=== PATIENT | male | born 1940 | race Caucasian/White ===

== ENCOUNTER 2016-06-04 23:46 | Emergency (ER) | payer MEDICARE ==
[2016-06-04] MEDS ORDERED: FEVERALL 650 MG ONE (23:55)
[2016-06-04] MEDS ORDERED: FEVERALL 325 MG ONE (23:56)
[2016-06-04] MEDS ORDERED: Sodium Chloride 0.9% 1000 ML 1,000 ML IV STA (23:59)
[2016-06-04] MEDS ORDERED: TYLENOL 325 MG PO STA (23:59)
[2016-06-05] MEDS ORDERED: Zosyn 3.375GM/100 Ml D5W 100 ML IV ONE ×2 (00:01→00:33)
--- NOTE | 2016-06-05 00:09 | ERPHSYRPT ---
- History of Present Illness Time Seen by Provider: 06/04/16 23:49 Source: EMS, other (ER NURSE) Exam Limitations: clinical condition (UNRESPONSIVE) Physician History: REPORTEDLY PT WAS FOUND UNRESPONSIVE TONIGHT AND BROUGHT TO [facility] ER FOR EVALUATION. PT IS CURRENTLY NON-VERBAL. Allergies/Adverse Reactions: aspirin Allergy (Verified 02/02/16 11:38) Home Medications: Bumetanide [Bumex] 2 mg PO BID 12/16/15 [History] Carvedilol 6.25 mg [Coreg 6.25 MG] 6.25 mg PO BID 12/16/15 [History] Fluticasone/Vilanterol [Breo Ellipta 100-25 Mcg INH] 1 ampul IH DAILY 12/16/15 [ History] Gabapentin 300 mg PO TID 12/16/15 [History] Ipratropium/Albuterol Sulfate [Iprat-Albut 0.5-3(2.5) mg/3 ml] 1 ampul IH Q6H PRN PRN 12/16/15 [History] Morphine Sulfate [Morphine Sulfate ER] 30 mg PO BID 12/16/15 [History] Omeprazole 20 MG [Prilosec 20 mg] 20 mg PO DAILY 12/16/15 [History] Oxycodone HCl 10 mg PO Q4H PRN PRN 12/16/15 [History] Potassium Chloride 20 Meq [Klor-Con 20 MEQ] 40 meq PO BID 12/16/15 [History] Pravastatin Sodium 40 mg PO DAILY 12/16/15 [History] Prazosin HCl 3 mg PO DAILY 12/16/15 [History] Sertraline HCl 50 mg [Zoloft 50 mg Tablet] 50 mg PO DAILY 12/16/15 [History] Hx Tetanus, Diphtheria Vaccination/Date Given: No Hx Influenza Vaccination/Date Given: Yes Hx Pneumococcal Vaccination/Date Given: Yes - Review of Systems All Other Systems: Unable due to condition (PT IS UNRESPONSIVE) - Past Medical History Pertinent Past Medical History: Yes Neurological History: No Pertinent History ENT History: No Pertinent History Cardiac History: Congestive Heart Failure, Hypertension, Peripheral Vascular Disease Respiratory History: No Pertinent History, COPD Endocrine Medical History: No Pertinent History Musculoskeletal History: Arthritis GI Medical History: GERD, Other History: No Pertinent History Psycho-Social History: Anxiety Male Reproductive Disorders: No Pertinent History Other Medical History: hyperlipidemia,polyneuropathy,unspecified,benign prostatic hyperplasia without lower urinary tract - Past Surgical History Past Surgical History: Yes Gastrointestinal: Other Other Surgical History: gastric bypass, 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,HEMODYLASIS PERMACATH - Social History Smoking Status: Former smoker Exposure to second hand smoke: No Drug Use: none Patient Lives Alone: No - Nursing Vital Signs Nursing Vital Signs: Initial Vital Signs Temperature 104.0 F Temperature Source Rectal Pulse Rate 108 Respiratory Rate 10 Blood Pressure [] 64/40 Pain Intensity 0 - Physical Exam General Appearance: other (UNRESPONSIVE) Eye Exam: other (PUPILS 3MM DIAMETER AND REACTIVE TO LIGHT) Ears, Nose, Throat Exam: dry mucous membranes Neck Exam: normal inspection Respiratory Exam: rhonchi Cardiovascular Exam: tachycardia Gastrointestinal/Abdomen Exam: normal bowel sounds, other (VENTRAL HERNIA) Back Exam: other (DECUBITUS ULCER ON RIGHT MID BACK, LOWER BACK AND PERIANAL AREA.) Extremity Exam: other (RIGHT AKA; LEFT 2ND TOE AMPUTEE.) Neurologic Exam: other (UNRESPONSIVE) Skin Exam: decubitus - Course Nursing assessment & vital signs reviewed: Yes EKG Interpreted by Me: RATE ([id number]), NORMAL AXIS, Non-specific ST Changes, Other ( PACEMAKER RHYTHM) - Radiology Exams Chest X-ray Interpretation: Interpreted by me (CM) Ordered Tests: Active Orders 24 hr Category Date Time Status Catheter-[place] STAT Care 06/04/16 23:59 Active EKG-ER Only STAT Care 06/05/16 00:02 Active IV Insertion STAT Care 06/04/16 23:59 Active Oxygen-ED Only NON-REBREATHER 100% Care 06/05/16 00:17 Active Oxygen-ED Only VENTI-MASK 50% Care 06/05/16 00:46 Active Pulse Oximetry (ED) STAT Care 06/04/16 23:59 Active Re-Check Vital Signs STAT Care 06/04/16 23:59 Completed CHEST 1 VIEW (PORTABLE) Stat Exams 06/05/16 00:00 Taken AMYLASE Stat Lab 06/05/16 00:00 Completed BLOOD CULTURE Stat Lab 06/04/16 23:59 Received CBC W DIFF Stat Lab 06/04/16 23:59 Results CMP Stat Lab 06/04/16 23:59 Completed CULTURE, THROAT Stat Lab 06/05/16 00:20 Received CULTURE,URINE Stat Lab 06/04/16 23:59 Received Erythrocyte Sedimentation Rate Stat Lab 06/05/16 00:00 Completed LIPASE Stat Lab 06/05/16 00:00 Completed Lactic Acid Urgent Lab 06/04/16 23:59 Completed Manual Differential NC Stat Lab 06/05/16 00:00 Results [place] Screen Stat Lab 06/04/16 23:59 Completed Pathologist Review Stat Lab 06/05/16 00:00 Results STREP SCREEN-BETA A Stat Lab 06/04/16 23:59 Completed TROPONIN Stat Lab 06/05/16 00:00 Completed UA W/ MICROSCOPIC Stat Lab 06/05/16 01:00 Completed VENOUS BLOOD GAS Stat Lab 06/05/16 00:30 Completed Medication Summary Generic Name Dose Route Start Last Admin Trade Name Freq PRN Reason Stop Dose Admin Sodium Chloride 1,000 mls @ 999 mls/hr 06/05/16 00:34 06/05/16 00:39 Sodium Chloride 0.9% 1000 Ml IV 06/05/16 01:34 999 mls/hr .Q1H1M STA Administration Discontinued Medications Generic Name Dose Route Start Last Admin Trade Name Freq PRN Reason Stop Dose Admin Acetaminophen Confirm 06/04/16 23:55 [place] 650 Mg Administered 06/04/16 23:56 Dose 650 mg .ROUTE .STK-MED ONE Acetaminophen Confirm 06/04/16 23:56 [place] 325 Mg Administered 06/04/16 23:57 Dose 325 mg .ROUTE .STK-MED ONE Acetaminophen 975 mg 06/04/16 23:59 06/05/16 00:20 Tylenol 325 Mg PO 06/05/16 00:00 975 mg STAT STA Administration Dextrose 50 ml 06/05/16 00:47 D50w 50 Ml Abboject IV 06/05/16 00:48 STAT ONE Dextrose Confirm 06/05/16 01:02 D50w 50 Ml Abboject Administered 06/05/16 01:03 Dose 50 ml IV .STK-MED ONE Sodium Chloride Confirm 06/05/16 00:00 Sodium Chloride 0.9% 1000 Ml Administered 06/05/16 00:01 Dose 1,000 mls @ ud .ROUTE .STK-MED ONE Piperacillin Sod/Tazobactam Sod 100 mls @ 100 mls/hr 06/05/16 00:01 06/05/16 00:56 Zosyn 3.375gm/100 Ml D5w IV 06/05/16 01:00 100 mls/hr STAT ONE Administration Sodium Chloride 1,000 mls @ 999 mls/hr 06/04/16 23:59 06/05/16 00:00 Sodium Chloride 0.9% 1000 Ml IV 06/05/16 00:59 999 mls/hr .Q1H1M STA Administration Sodium Chloride Confirm 06/05/16 00:33 Sodium Chloride 0.9% 1000 Ml Administered 06/05/16 00:34 Dose 1,000 mls @ ud .ROUTE .STK-MED ONE Piperacillin Sod/Tazobactam Sod Confirm 06/05/16 00:33 Zosyn 3.375gm/100 Ml D5w Administered 06/05/16 00:34 Dose 100 mls @ ud IV .STK-MED ONE Insulin Human Regular 10 unit 06/05/16 00:47 Novolin R IV 06/05/16 00:48 STAT ONE Insulin Human Regular Confirm 06/05/16 01:02 Novolin R Administered 06/05/16 01:03 Dose 10 unit .ROUTE .STK-MED ONE Lidocaine HCl 200 mg 06/05/16 00:17 06/05/16 00:39 Xylocaine 2% Uro-Jet TOP 06/05/16 00:18 200 mg STAT ONE Administration Lidocaine HCl Confirm 06/05/16 00:18 Xylocaine 2% Uro-Jet Administered 06/05/16 00:19 Dose 200 mg .ROUTE .STK-MED ONE Lab/Rad Data: Laboratory Result Diagrams 06/05/16 00:00 06/05/16 00:00 Laboratory Results 06/05/16 06/05/16 06/05/16 Range/Units 01:00 00:30 00:20 WBC (4.0-10.5) K/mm3 RBC (4.1-5.6) M/mm3 Hgb (12.5-18.0) gm/dl Hct (42-50) % MCV (78-100) fl MCH (26-32) pg MCHC (32-36) g/dl RDW (11.5-14.0) % Plt Count (150-450) K/mm3 MPV (6-9.5) fl Smear Path Review ESR (0-15) mm/hr VBG pH 7.25 L (7.32-7.42) VBG pCO2 at Pat Temp 71 H* (42-55) mm/Hg VBG pO2 at Pat Temp 65 H (25-40) mm/Hg VBG HCO3 31.1 H* (22-28) meq/L VBG O2 Sat (Chloe) 94.9 L (95-100) VBG Base Excess 2.1 H (-2.0-2.0) VBG Hemoglobin 12.3 VBG Carboxyhemoglobin 3.0 (0.0-6.9) % T HGB POC Potassium 5.5 H (3.5-5.1) Sodium (136-145) mEq/L Potassium (3.5-5.1) mEq/L Chloride (98-107) mEq/L Carbon Dioxide (21-32) mEq/L Anion Gap (5-15) MEQ/L BUN (9-20) mg/dL Creatinine (0.55-1.30) mg/dl Estimated GFR ML/MIN Glucose (70-110) MG/DL Lactic Acid (0.4-2.0) Calcium (8.5-10.1) mg/dL Total Bilirubin (0.2-1.0) mg/dL AST (15-37) U/L ALT (12-78) U/L Alkaline Phosphatase (46-116) U/L Troponin I (0.000-0.056) ng/ml Serum Total Protein (6.4-8.2) gm/dL Albumin (3.4-5.0) g/dL Amylase (25-115) U/L Lipase (73-393) U/L Ur Collection Type CATH Urine Color BROWN (YELLOW) Urine Appearance CLOUDY (CLEAR) Urine pH 8.5 (5-6) Ur Specific Victor 1.015 (1.005-1.025) Urine Protein >=300 (Negative) Urine Glucose (UA) 100 (NEGATIVE) mg/dL Urine Ketones SMALL-15 (NEGATIVE) Urine Nitrite POSITIVE (NEGATIVE) Urine Bilirubin LARGE (NEGATIVE) Urine Urobilinogen 4 (0-1) mg/dL Urine WBC (Auto) LARGE (NEGATIVE) Urine RBC (Auto) LARGE (0-5) Crow/ul Urine Microscopic RBC >100 (0-2) /HPF Urine Microscopic WBC 50-100 (0-5) /HPF Ur Epithelial Cells FEW (FEW) /HPF Amorphous Crystals MODERATE (NEGATIVE) /HPF Urine Bacteria PACKED (NEGATIVE) /HPF Urine Mucus MODERATE (NEGATIVE) /HPF Urine Yeast FEW (NEGATIVE) /HPF Monoscreen (Negative) Streptococcus Screen NEGATIVE (Negative) Specimen Received 06/05/16:0100 06/05/16 06/05/16 06/05/16 Range/Units 00:00 00:00 00:00 WBC (4.0-10.5) K/mm3 RBC (4.1-5.6) M/mm3 Hgb (12.5-18.0) gm/dl Hct (42-50) % MCV (78-100) fl MCH (26-32) pg MCHC (32-36) g/dl RDW (11.5-14.0) % Plt Count (150-450) K/mm3 MPV (6-9.5) fl Smear Path Review ESR 1 (0-15) mm/hr VBG pH (7.32-7.42) VBG pCO2 at Pat Temp (42-55) mm/Hg VBG pO2 at Pat Temp (25-40) mm/Hg VBG HCO3 (22-28) meq/L VBG O2 Sat (Chloe) (95-100) VBG Base Excess (-2.0-2.0) VBG Hemoglobin VBG Carboxyhemoglobin (0.0-6.9) % T HGB POC Potassium (3.5-5.1) Sodium (136-145) mEq/L Potassium (3.5-5.1) mEq/L Chloride (98-107) mEq/L Carbon Dioxide (21-32) mEq/L Anion Gap (5-15) MEQ/L BUN (9-20) mg/dL Creatinine (0.55-1.30) mg/dl Estimated GFR ML/MIN Glucose (70-110) MG/DL Lactic Acid (0.4-2.0) Calcium (8.5-10.1) mg/dL Total Bilirubin (0.2-1.0) mg/dL AST (15-37) U/L ALT (12-78) U/L Alkaline Phosphatase (46-116) U/L Troponin I 0.018 (0.000-0.056) ng/ml Serum Total Protein (6.4-8.2) gm/dL Albumin (3.4-5.0) g/dL Amylase 24 L (25-115) U/L Lipase 34 L (73-393) U/L Ur Collection Type Urine Color (YELLOW) Urine Appearance (CLEAR) Urine pH (5-6) Ur Specific Victor (1.005-1.025) Urine Protein (Negative) Urine Glucose (UA) (NEGATIVE) mg/dL Urine Ketones (NEGATIVE) Urine Nitrite (NEGATIVE) Urine Bilirubin (NEGATIVE) Urine Urobilinogen (0-1) mg/dL Urine WBC (Auto) (NEGATIVE) Urine RBC (Auto) (0-5) Crow/ul Urine Microscopic RBC (0-2) /HPF Urine Microscopic WBC (0-5) /HPF Ur Epithelial Cells (FEW) /HPF Amorphous Crystals (NEGATIVE) /HPF Urine Bacteria (NEGATIVE) /HPF Urine Mucus (NEGATIVE) /HPF Urine Yeast (NEGATIVE) /HPF Monoscreen POSITIVE (Negative) Streptococcus Screen (Negative) Specimen Received 06/05/16 06/05/16 06/04/16 Range/Units 00:00 00:00 23:59 WBC 34.7 H* (4.0-10.5) K/mm3 RBC 5.06 (4.1-5.6) M/mm3 Hgb 13.2 (12.5-18.0) gm/dl Hct 47.3 (42-50) % MCV 93.5 (78-100) fl MCH 26.1 (26-32) pg MCHC 27.9 L (32-36) g/dl RDW 20.8 H (11.5-14.0) % Plt Count 267 (150-450) K/mm3 MPV 12.4 H (6-9.5) fl Smear Path Review Pending ESR (0-15) mm/hr VBG pH (7.32-7.42) VBG pCO2 at Pat Temp (42-55) mm/Hg VBG pO2 at Pat Temp (25-40) mm/Hg VBG HCO3 (22-28) meq/L VBG O2 Sat (Chloe) (95-100) VBG Base Excess (-2.0-2.0) VBG Hemoglobin VBG Carboxyhemoglobin (0.0-6.9) % T HGB POC Potassium (3.5-5.1) Sodium 134 L (136-145) mEq/L Potassium 5.7 H (3.5-5.1) mEq/L Chloride 97 L (98-107) mEq/L Carbon Dioxide 33.3 H (21-32) mEq/L Anion Gap 9.1 (5-15) MEQ/L BUN 69 H (9-20) mg/dL Creatinine 3.83 H (0.55-1.30) mg/dl Estimated GFR 16 ML/MIN Glucose 96 (70-110) MG/DL Lactic Acid 1.2 (0.4-2.0) Calcium 8.4 L (8.5-10.1) mg/dL Total Bilirubin 0.4 (0.2-1.0) mg/dL AST 34 (15-37) U/L ALT 13 (12-78) U/L Alkaline Phosphatase 121 H (46-116) U/L Troponin I (0.000-0.056) ng/ml Serum Total Protein 7.1 (6.4-8.2) gm/dL Albumin 2.3 L (3.4-5.0) g/dL Amylase (25-115) U/L Lipase (73-393) U/L Ur Collection Type Urine Color (YELLOW) Urine Appearance (CLEAR) Urine pH (5-6) Ur Specific Victor (1.005-1.025) Urine Protein (Negative) Urine Glucose (UA) (NEGATIVE) mg/dL Urine Ketones (NEGATIVE) Urine Nitrite (NEGATIVE) Urine Bilirubin (NEGATIVE) Urine Urobilinogen (0-1) mg/dL Urine WBC (Auto) (NEGATIVE) Urine RBC (Auto) (0-5) Crow/ul Urine Microscopic RBC (0-2) /HPF Urine Microscopic WBC (0-5) /HPF Ur Epithelial Cells (FEW) /HPF Amorphous Crystals (NEGATIVE) /HPF Urine Bacteria (NEGATIVE) /HPF Urine Mucus (NEGATIVE) /HPF Urine Yeast (NEGATIVE) /HPF Monoscreen (Negative) Streptococcus Screen (Negative) Specimen Received - Progress Discussed with : Ankit Gomez (ACCEPTING PT FOR TRANSFER TO [facility] A DIRECT ADMISSION TO ICU - [id number].) - Departure Time of Disposition: 01:18 Departure Disposition: Transfer ([facility]) Clinical Impression: UNRESPONSIVE, HYPERPYREXIA, DECUBITUS ULCERS, HYPERKALEMIA, UTI, GERD, RIGHT AKA, LEUKOCYTOSIS R/O SEPSIS, INFECTIOUS MONONUCLEOSIS, COPD, ESRD, ARTHRITIS Condition: Critical Critical Care Time: Yes Critical Care Time(excluding separately billable procedures): 30-74 minutes Referrals: JAIDA KENNEDY [Primary Care Provider] -
[2016-06-05] MEDS ORDERED: XYLOCAINE 2% Uro-Jet TOP ONE (00:17)
[2016-06-05] MEDS ORDERED: XYLOCAINE 2% Uro-Jet ONE (00:18)
[2016-06-05 00:20] LABS: ALBUMIN 2.3 g/dL (3.4-5.0); ANION GAP 9.1 MEQ/L (5-15); BILIRUBIN,TOTAL 0.4 mg/dL (0.2-1.0); Carbon Dioxide 33.3 mEq/L (21-32); Potassium 5.7 mEq/L (3.5-5.1); Total Protein 7.1 gm/dL (6.4-8.2)
[2016-06-05 00:25] LABS: TROPONIN 0.018 ng/ml (0.000-0.056)
[2016-06-05 00:31] LABS: Mean Cell Volume 93.5 fl (78-100); Mean Corpuscular Hemoglobin 26.1 pg (26-32); Mean Platelet Volume 12.4 fl (6-9.5); Platelet Count 267 K/mm3 (150-450); Red Blood Count 5.06 M/mm3 (4.1-5.6); Red Cell Distribution Width 20.8 % (11.5-14.0)
[2016-06-05] MEDS ORDERED: Sodium Chloride 0.9% 1000 ML 1,000 ML ONE ×3 (00:33→01:49)
[2016-06-05] MEDS ORDERED: Sodium Chloride 0.9% 1000 ML 1,000 ML IV STA (00:34)
[2016-06-05 00:35] LABS: VBG BASE EXCESS 2.1 (-2.0-2.0); VBG HCO3- 31.1 meq/L (22-28); VBG HEMOGLOBIN 12.3; VBG O2 SATURATION 94.9 (95-100); VBG POTASSIUM 5.5 (3.5-5.1); VBG pH 7.25 (7.32-7.42)
[2016-06-05 00:38] LABS: White Blood Count 34.7 K/mm3 (4.0-10.5)
[2016-06-05] MEDS ORDERED: NovoLIN R IV ONE (00:47)
[2016-06-05] MEDS ORDERED: D50W 50 ml Abboject IV ONE ×2 (00:47→01:02)
[2016-06-05] MEDS ORDERED: NovoLIN R ONE (01:02)
[2016-06-05 01:15] LABS: Collection Type CATH
[2016-06-05 01:16] LABS: Bacteria PACKED /HPF (NEGATIVE); COMPLETE URINE MICROSCOPIC? YES; Epithelial Cells FEW /HPF (FEW); Mucus MODERATE /HPF (NEGATIVE); Ph 8.5 (5-6); WBC 50-100 /HPF (0-5); Yeast FEW /HPF (NEGATIVE)
[2016-06-05] MEDS ORDERED: LEVOPHED 4 MG/4 ML 4,000 MCG in Dextrose 5%/Water IV Soln. 500 ML 500 ML IV PRN (01:27)
[2016-06-05 01:33] LABS: ATYPICAL LYMPHS 2 %; BAND 9 % (0.0-2.0); Total Cells Counted 100
[2016-06-05 01:35] LABS: ANISOCYTOSIS 1+; Burr Cells 1+; Hypochromia 1+; Platelet Estimate NORMAL (NORMAL)
[2016-06-05] MEDS ORDERED: Sodium Chloride 0.9% 1000 ML 1,000 ML IV SCH (02:00)
[2016-06-05 02:15] VITALS: BP 70/38; PULSE 78; O2SAT 96
--- NOTE | 2016-06-05 08:15 | XRAY ---
Indication: Unresponsive. Sepsis. Comparison: February 02, 2016. Portable chest unchanged again demonstrating cardiomegaly, central vascular prominence, and bibasilar effusions favoring cardiac decompensation. Superimposed pneumonia not excluded. Stable right-sided dialysis catheter and single lead pacemaker.
== END 2016-06-05 02:30 | disposition short-term general hospital (02) ==
LOC: ED 23:46
DX: R40.4 Transient alteration of awareness (principal); R50.9 Fever, unspecified; E11.622 Type 2 diabetes mellitus with other skin ulcer; E87.5 Hyperkalemia; K21.9 Gastro-esophageal reflux disease without esophagitis; Z89.611 Acquired absence of right leg above knee; D72.829 Elevated white blood cell count, unspecified; B27.90 Infectious mononucleosis, unspecified without complication; J44.9 Chronic obstructive pulmonary disease, unspecified; N18.6 End stage renal disease; M19.90 Unspecified osteoarthritis, unspecified site; Z79.899 Other long term (current) drug therapy; I50.9 Heart failure, unspecified; I73.9 Peripheral vascular disease, unspecified
CPT/HCPCS: 36000; 36415; 51702; 71010; 80053; 81000; 82150; 82805; 83605; 83690; 84484; 85025; 85652; 86308; 87040; 87070; 87077; 87086; 87186; 87430; 87631; 93005; 94002; 96360; 96361; 96365; 96367; 96374; 96375; 99285; J2543; A9270-GY